=== PATIENT | female | born 1945 | race Caucasian/White ===

== ENCOUNTER 2021-04-01 08:21 | Outpatient (REF) | payer MEDICARE, SELFPAY ==
--- NOTE | ~2021-04-01 | XR_ITS ---
EXAMINATION: XR HIP, LEFT CLINICAL INFORMATION: Left hip pain COMPARISON: None TECHNIQUE: Two views of the left hip. AP pelvis. FINDINGS: Severe left hip osteoarthritis with obliteration of the joint space, sclerosis, degenerative cysts, and marginal osteophytes. No acute osseous abnormality. There is mild to moderate right hip osteoarthritis with joint space narrowing. XR/XR hip LT w [id number] IMPRESSION: Asymmetric severe left hip osteoarthritis which may be the sequela of a remote injury or inflammatory arthritis. No acute osseous abnormalities.
== END 2021-04-01 08:22 | disposition home or self-care (01) ==
LOC: HO.HOSX 08:21
PROVIDERS: Visit Provider Orthopaedic Surgery
DX: M16.12 Unilateral primary osteoarthritis, left hip (principal)
CPT/HCPCS: 73502; 99202

== ENCOUNTER → 2021-04-11 11:01 | Outpatient (BNVA) | payer MEDICARE, SELFPAY | PROVIDERS: PCP Radiology Vascular & Interventional Radiology; Visit Provider Orthopaedic Surgery | DX: M16.12 Unilateral primary osteoarthritis, left hip (principal) | CPT/HCPCS: 99212 ==

== ENCOUNTER → 2021-05-13 08:56 | Outpatient (BNVA) | payer MEDICARE, SELFPAY | PROVIDERS: PCP Internal Medicine; Visit Provider Orthopaedic Surgery | DX: Z01.810 Encounter for preprocedural cardiovascular examination (principal); Z01.812 Encounter for preprocedural laboratory examination; M17.12 Unilateral primary osteoarthritis, left knee; M16.12 Unilateral primary osteoarthritis, left hip | CPT/HCPCS: 36415; 80048; 85025 ==

== ENCOUNTER 2021-06-02 | Outpatient (REF) | payer MEDICARE, SELFPAY ==
--- NOTE | 2021-05-13 10:36 | ECG_ITS ---
Test Reason : PRE OP Blood Pressure : / mmHG Vent. Rate : 077 BPM Atrial Rate : 077 BPM P-R Int : 154 ms QRS Dur : 086 ms QT Int : 372 ms P-R-T Axes : 040 017 014 degrees QTc Int : 420 ms Normal sinus rhythm Normal ECG No previous ECGs available Referred By: Lennie Sanchez Electronically Signed By:WANDA BURCH MD
[2021-06-02 11:55] VITALS: BP 139/71; PULSE 81; RESP 16; O2SAT 97; BMI 30.7
[2021-06-02 14:14] LABS: MRSA Nasal PCR NEGATIVE (Negative); SA Nasal PCR NEGATIVE (Negative)
== END 2021-06-02 00:01 | disposition home or self-care (01) ==
LOC: HO.LAB
PROVIDERS: Physician Assistant; Visit Provider Orthopaedic Surgery
DX: Z01.810 Encounter for preprocedural cardiovascular examination (principal); M16.12 Unilateral primary osteoarthritis, left hip
CPT/HCPCS: 86850; 86900; 86901; 87640; 87641; 93005